=== PATIENT | female | born 1965 | race Caucasian/White ===

== ENCOUNTER 2020-01-01 06:49 | Day surgery (SDC) | payer OTHER, SELFPAY ==
[2020-01-01] MEDS ORDERED: fentaNYL 0.05 MG/ML VIAL ONE (08:11)
[2020-01-01] MEDS ORDERED: LIDOCAINE 2% 100 MG/5 ML UJET TP ONE (08:11)
== END 2020-01-01 09:40 | disposition home or self-care (01) ==
LOC: MMU 06:49 → MDS 06:49
PROVIDERS: ATTEND Internal Medicine Gastroenterology
DX: Z12.11 Encounter for screening for malignant neoplasm of colon (principal); D12.7 Benign neoplasm of rectosigmoid junction; K57.30 Diverticulosis of large intestine without perforation or abscess without bleeding; I10 Essential (primary) hypertension; K21.9 Gastro-esophageal reflux disease without esophagitis; Z98.890 Other specified postprocedural states; Z79.899 Other long term (current) drug therapy
CPT/HCPCS: 45378; J3010; J7030; U0003